=== PATIENT | female | born 1980 | race Caucasian/White ===

== ENCOUNTER 2022-03-14 08:18 | Day surgery (SDC) | payer MEDICAID ==
[~2022-03-14] VITALS: Ht 167.6 cm; Wt 158.8 kg
[2022-03-14 08:49] LABS: HCG,QUAL RESULT NEGATIVE (NEGATIVE)
[2022-03-14] MEDS ORDERED: fentaNYL CITRATE/PF 100 MCG/2 ML AMP ONE (11:45)
[2022-03-14] MEDS ORDERED: MIDAZOLAM HCL 2 MG/2 ML VIAL (VERSED) ONE (11:46)
[2022-03-14] MEDS ORDERED: DIPHENHYDRAMINE INJ 50 MG/ML VIAL ONE (11:47)
[2022-03-14] MEDS ORDERED: NORMAL SALINE 10 ML VIAL ONE (12:00)
[2022-03-14] MEDS ORDERED: ISOVUE-300 (IOPAMIDOL) 100 ML INFUS..BTL IV ONE (12:00)
[2022-03-14] MEDS ORDERED: methylPREDNISolone ACETATE 40 MG/ML ONE (12:00)
[2022-03-14] MEDS ORDERED: LIDOCAINE 2%, 20 ML MDV ONE (12:00)
[2022-03-14 16:22] VITALS: BP_SYST 138
== END 2022-03-14 13:00 | disposition home or self-care (01) ==
LOC: SDS 08:18 → SMU 08:19 → SDS 13:00
PROVIDERS: ATTEND Internal Medicine
DX: M51.16 Intervertebral disc disorders with radiculopathy, lumbar region (principal); M79.10 Myalgia, unspecified site; F41.9 Anxiety disorder, unspecified; F32.A Depression, unspecified; E11.9 Type 2 diabetes mellitus without complications; Z79.899 Other long term (current) drug therapy; Z79.84 Long term (current) use of oral hypoglycemic drugs; Z88.8 Allergy status to other drugs, medicaments and biological substances; Z20.822 Contact with and (suspected) exposure to COVID-19
CPT/HCPCS: 36415; 62323; 84703; U0003; J1200; J2001; J1030; J3465; J3010; Q9967; 76000

== ENCOUNTER 2022-10-24 08:08 | Day surgery (SDC) | payer MEDICAID ==
[~2022-10-24] VITALS: Ht 167.6 cm; Wt 135.6 kg
[2022-10-24 08:31] LABS: HCG,QUAL RESULT NEGATIVE (NEGATIVE)
[2022-10-24] MEDS ORDERED: DIPHENHYDRAMINE INJ 50 MG/ML VIAL ONE (08:37)
[2022-10-24] MEDS ORDERED: fentaNYL CITRATE/PF 100 MCG/2 ML AMP ONE (08:37)
[2022-10-24] MEDS ORDERED: ONDANSETRON HCL 4 MG/2 ML VIAL ONE (08:37)
[2022-10-24] MEDS: MIDAZOLAM HCL 5 MG/5 ML VIAL ONE ×3 (11:26→11:32)
[2022-10-24 12:21] VITALS: O2SAT 97
[2022-10-24 14:40] VITALS: BP_SYST 147; PULSE 79; RESP 20
== END 2022-10-24 12:10 | disposition home or self-care (01) ==
LOC: SDS 08:08 → SMU 08:09 → SDS 12:10
PROVIDERS: ATTEND Internal Medicine
DX: M51.16 Intervertebral disc disorders with radiculopathy, lumbar region (principal); M25.552 Pain in left hip; F41.9 Anxiety disorder, unspecified; F32.A Depression, unspecified; E11.9 Type 2 diabetes mellitus without complications; Z88.8 Allergy status to other drugs, medicaments and biological substances; Z79.899 Other long term (current) drug therapy
CPT/HCPCS: 62323; 84703; J1200; J2250; J3010; 76000; J2405